=== PATIENT | female | born 1960 | race African-American/Black ===

== ENCOUNTER 2018-03-20 14:50 | Emergency (ER) | payer MEDICAID ==
[2018-03-20 15:18] LABS: BASOPHILS % (AUTO) 0.7 %; EOSINOPHILS # (AUTO) 0.1 10^3/uL (0.0-0.7); EOSINOPHILS % (AUTO) 1.9 %; LYMPHOCYTES # (AUTO) 2.8 10^3/uL (1.5-3.5); LYMPHOCYTES % (AUTO) 37.6 %; MEAN CORPUSCULAR HEMOGLOBIN 29.6 pg (27.0-31.0); MEAN CORPUSCULAR HGB CONC 33.6 g/dL (32.0-36.0); MEAN CORPUSCULAR VOLUME 88.2 fL (81.0-99.0); MONOCYTES # (AUTO) 0.5 10^3/uL (0.0-1.0); MONOCYTES % (AUTO) 7.4 %; NEUTROPHILS # (AUTO) 3.9 10^3/uL (1.5-6.6); NEUTROPHILS % (AUTO) 52.4 %; PLT - PLATELET COUNT 215 10^3/uL (130-450); RED BLOOD COUNT 4.37 10^6/uL (4.20-5.40); RED CELL DISTRIBUTION WIDTH 12.9 % (12.0-15.0); WHITE BLOOD COUNT 7.4 x10^3/uL (4.8-10.8)
[2018-03-20 15:27] LABS: ALBUMIN 3.9 g/dL (3.2-5.5); ALBUMIN/GLOBULIN RATIO 0.9 (1.0-2.2); BILIRUBIN,TOTAL 0.6 mg/dL (0.2-1.0); CALCIUM 9.3 mg/dL (8.5-10.3); CREATININE 0.8 mg/dL (0.4-1.0); TOTAL PROTEIN 8.3 g/dL (6.7-8.2)
--- NOTE | 2018-03-20 16:07 | XRAY Report ---
Reason: chest pain Procedure Date: 03/20/2018 Accession Number: [id number] / [id number] Procedure: XR - Chest 2 View X-Ray CPT Code: 63378 FULL RESULT: EXAM: CHEST RADIOGRAPHY. EXAM DATE: 03/20/2018 03:57 PM. CLINICAL HISTORY: Chest pain. COMPARISON: None. TECHNIQUE: 2 views. FINDINGS: Lungs/Pleura: Mild increased prominence of interstitial lung markings. No focal opacities evident. No pleural effusion. No pneumothorax. Normal volumes. Mediastinum: Heart and mediastinal contours are unremarkable. Other: None. IMPRESSION: Mildly increased interstitial prominence can be seen with mild interstitial pulmonary edema. Otherwise, there is no acute cardiopulmonary abnormality. RADIA
--- NOTE | 2018-03-20 17:04 | ED Physician Documentation ---
History of Present Illness - Stated complaint Stated Complaint: CHEST PX - Chief complaint Chief Complaint: Cardiac - Additonal information Additional information: hx from pt 57 female to ED with int chest pain states she had chest pain about 2 weeks ago then has had a constant mild tightness to her upper lateral left chest for a week as well as brief episode of low mid substernal CP lasting 10 sec at a time which feels like gas and is usually noted when moving around but no real ppt or palliating factors slight soa no fever no cough travelled from [place] 3 weeks ago to see [facility] no leg swelling has had CXR echo stress test within last 2 yr - was told her heart is a bit enlarged Review of Systems Constitutional: denies: Fever, Chills Cardiac: reports: Chest pain / pressure Respiratory: reports: Dyspnea. denies: Cough GI: denies: Abdominal Pain, Nausea, Vomiting, Diarrhea Musculoskeletal: denies: Extremity pain, Extremity swelling Endocrine: denies: Easy bruising / bleeding Immunocompromised: denies: Immunocompromised PD PAST MEDICAL HISTORY - Present Medications Home Medications: Ambulatory Orders Medication Instructions Recorded Confirmed Levothyroxine [Synthroid] 03/20/18 Simethicone [Gas Relief] 125 mg PO BID #60 capsule 03/20/18 raNITIdine [Zantac] 150 mg PO BID #60 tablet 03/20/18 - Allergies Allergies/Adverse Reactions: Allergies Allergy/AdvReac Type Severity Reaction Status Date / Time No Known Drug Allergies Allergy Verified 03/20/18 14:58 PD ED PE NORMAL - Vitals Vital signs reviewed: Yes - HEENT HEENT: Atraumatic - Neck Neck: Supple, no meningeal sign - Cardiac Cardiac: RRR, No murmur - Respiratory Respiratory: No respiratory distress, Clear bilaterally - Abdomen Abdomen: Soft, Non tender - Extremities Extremities: No edema, No calf tenderness / cord - Neuro Neuro: Alert and oriented X 3, No motor deficit, No sensory deficit Results - Vitals Vitals: Vital Signs - 24 hr 03/20/18 03/20/18 03/20/18 14:57 15:25 15:30 Temperature 36 C L Heart Rate 71 69 Respiratory 20 16 Rate Blood Pressure 118/83 H 117/85 H Blood Pressure 117/85 H [Left] O2 Saturation 97 100 03/20/18 03/20/18 16:30 17:41 Temperature 36.7 C Heart Rate 67 61 Respiratory 16 16 Rate Blood Pressure 134/87 H 133/97 H Blood Pressure [Left] O2 Saturation 97 98 Oxygen O2 Source Room air - EKG (time done) 1501 Rate: Rate (enter#) (69) Rhythm: NSR [place]: Normal Intervals: Normal ID Ischemia: Other (RSR with concave up ST elev V2 , no recip changes, ) - Labs Labs: Laboratory Tests 03/20/18 03/20/18 03/20/18 15:12 15:12 15:12 WBC 7.4 RBC 4.37 Hgb 13.0 Hct 38.6 MCV 88.2 MCH 29.6 MCHC 33.6 RDW 12.9 Plt Count 215 MPV 10.0 Neut # (Auto) 3.9 Lymph # (Auto) 2.8 [place] # (Auto) 0.5 Eos # (Auto) 0.1 Baso # (Auto) 0.0 Absolute Nucleated RBC 0.00 Nucleated RBC % 0.1 Sodium 137 Potassium 3.9 Chloride 104 Carbon Dioxide 28 Anion Gap 5.0 L BUN 13 Creatinine 0.8 Estimated GFR (MDRD) 90 Glucose 106 H Calcium 9.3 Total Bilirubin 0.6 AST 19 ALT 27 Alkaline Phosphatase 57 Troponin I < 0.04 B-Natriuretic Peptide Total Protein 8.3 H Albumin 3.9 Globulin 4.4 H Albumin/Globulin Ratio 0.9 L Lipase 30 03/20/18 15:12 WBC RBC Hgb Hct MCV MCH MCHC RDW Plt Count MPV Neut # (Auto) Lymph # (Auto) [place] # (Auto) Eos # (Auto) Baso # (Auto) Absolute Nucleated RBC Nucleated RBC % Sodium Potassium Chloride Carbon Dioxide Anion Gap BUN Creatinine Estimated GFR (MDRD) Glucose Calcium Total Bilirubin AST ALT Alkaline Phosphatase Troponin I B-Natriuretic Peptide 16 Total Protein Albumin Globulin Albumin/Globulin Ratio Lipase - Rads (name of study) CXR Radiology: See rad report (mildly increased interstial markings possibly mild edema) PD MEDICAL DECISION MAKING - ED course ED course: 57 f with L upper chest pain for a week and bf epsidoes of substernal CP EKG slightly abn but trop neg after sx for a week CXR possible edema but BNP neg recent travel from [place] but no very SOA and not tachypneic or tachycardic and no leg pain or swelling so doubt PE pain is pressure/tightness and no rad to back so doubt dissection given age likely merits risk stratification with EST etc but for today feel labs rule out ACS and hx and exam rule out PE dissection and pt is sandy to dc with outpt fup since she feels sx may be due to gas will try simethicone and zantac as well - Sepsis Event Vital Signs: Vital Signs - 24 hr 03/20/18 03/20/18 03/20/18 14:57 15:25 15:30 Temperature 36 C L Heart Rate 71 69 Respiratory 20 16 Rate Blood Pressure 118/83 H 117/85 H Blood Pressure 117/85 H [Left] O2 Saturation 97 100 03/20/18 03/20/18 16:30 17:41 Temperature 36.7 C Heart Rate 67 61 Respiratory 16 16 Rate Blood Pressure 134/87 H 133/97 H Blood Pressure [Left] O2 Saturation 97 98 Oxygen O2 Source Room air Departure - Departure Disposition: Home, Self Care Clinical Impression: Chest pain Qualifiers: Chest pain type: unspecified Qualified Code(s): R07.9 - Chest pain, unspecified Condition: Good Instructions: ED Chest Pain Atypical Unkn Cause Prescriptions: raNITIdine [Zantac] 150 mg PO BID #60 tablet Simethicone [Gas Relief] 125 mg PO BID #60 capsule Comments: The tests today are reassuring Your EKG is not completely normal but the blood work indicates you have not had a heart attack or congestive heart failure I would still recommend you see your PMD when you get back to [place] to discuss getting another stress test to assess your risk for heart disease. The xray did not show pneumonia and the heart sized was normal Your history and exam do not suggest a blood clot in your lungs or a tear or aneurysm of your aorta I think it is safe for you to home and to see your PMD when you get home to [place]. Since you thought the pain might be due to gas I suggest a trial of simethicone and zantac to see if that helps. OF course return to the ER if worse in any way while you are here visiting
[2018-03-20 18:34] VITALS: BP 143/98
== END 2018-03-20 18:53 | disposition home or self-care (01) ==
LOC: ED 14:50
DX: R07.9 Chest pain, unspecified (principal)
CPT/HCPCS: 36415; 71046; 80053; 83690; 83880; 84484; 85025; 93005; 99283